=== PATIENT | female | born 1945 | race Two or more races ===

== ENCOUNTER 2024-10-07 06:52 | Day surgery (SDC) | payer MEDICARE, OTHER ==
[~2024-10-07] VITALS: Ht 165.1 cm; Wt 79.5 kg
[~2024-10-07 06:52] MED LIST: BISO5TAB20; LEVO75TA7 PO; OMEP20CA16; VALS1TAB76
[2024-10-07 07:44] VITALS: BP 118/69; PULSE 60; RESP 11
[2024-10-07] MEDS ORDERED: propofol 10mg/ml 20ml vial IV ONE (08:08)
[2024-10-07 08:50] VITALS: BP 113/68; PULSE 63; RESP 14; O2SAT 96
[2024-10-07 09:00] VITALS: BP 118/64; PULSE 58; RESP 18; O2SAT 97
[2024-10-07 09:10] VITALS: BP 130/61; PULSE 55; RESP 20; O2SAT 95
[2024-10-07 09:20] VITALS: BP 142/70; PULSE 57; RESP 16; O2SAT 98
== END 2024-10-07 09:30 | disposition home or self-care (01) ==
LOC: GI LAB 06:52
PROVIDERS: ATTEND Internal Medicine Gastroenterology
DX: K92.1 Melena (principal); K64.8 Other hemorrhoids; I10 Essential (primary) hypertension; E03.9 Hypothyroidism, unspecified; Z98.890 Other specified postprocedural states; Z79.899 Other long term (current) drug therapy
CPT/HCPCS: 45378; J2704; J7030; Z7512; A4620

== ENCOUNTER 2024-10-21 06:54 | Day surgery (SDC) | payer MEDICARE ==
[~2024-10-21] VITALS: Ht 165.1 cm; Wt 80.9 kg
[2024-10-21 07:19] VITALS: BP 132/69; PULSE 63; RESP 16
[2024-10-21] MEDS ORDERED: propofol 10mg/ml 20ml vial IV ONE (08:00)
[2024-10-21 08:15] VITALS: BP_SYST 100; BP_SYST 101; BP_DIAS 55; BP_DIAS 57; PULSE 58; PULSE 59; RESP 13; RESP 16; O2SAT 96; O2SAT 97
[2024-10-21 08:35] VITALS: BP 113/62; PULSE 54; RESP 15; O2SAT 95
[2024-10-21 08:45] VITALS: BP 126/69; PULSE 56; RESP 18; O2SAT 99
== END 2024-10-21 09:00 | disposition home or self-care (01) ==
LOC: GI LAB 06:54
PROVIDERS: ATTEND Internal Medicine Gastroenterology
DX: K30 Functional dyspepsia (principal); K21.00 Gastro-esophageal reflux disease with esophagitis, without bleeding; K31.89 Other diseases of stomach and duodenum; K29.50 Unspecified chronic gastritis without bleeding; I10 Essential (primary) hypertension; E03.9 Hypothyroidism, unspecified; E66.9 Obesity, unspecified; Z86.0100 Personal history of colon polyps, unspecified; Z79.890 Hormone replacement therapy; Z79.899 Other long term (current) drug therapy
CPT/HCPCS: 43239; J2704; J7030; Z7512; 88305; A4620